=== PATIENT | male | born 1955 | race Caucasian/White ===

== ENCOUNTER 2023-05-26 22:56 | Emergency (ER) | payer MEDICARE, OTHER, SELFPAY ==
[2023-05-26 23:04] VITALS: BP 180/84
[2023-05-27 00:15] VITALS: BP 177/86; BMI 24.6
--- NOTE | 2023-05-27 00:40 | ED.GENMED ---
History of Present Illness
<ELÍAS Brown - Last Filed: 05/27/23 01:01>
General
Chief Complaint: Musculo-Skeletal Complaint
Source: patient
Exam Limitations: none
Time Seen by Provider: 05/27/23 00:14
Nursing documentation reviewed up to this point in time: agreed with
Travel History
Have you had any contact with someone who has COVID-19?: No
Do you have any symptoms of coronavirus? Fever > 100 degrees, chills, cough, shortness of breath, sore throat, loss of taste or smell, muscle aches, or headache?: No
History of Present Illness
History of Present Illness:
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 He states the pain is worse today and rated as severe. Patient reports pain is worse at night and okay during day. Patient
reports the pain starts at his hip and goes down to his knee. He reports the pain is constant but he gets occasional shooting pain from hip to knee. He took Motrin for his pain without relief of symptoms. He is able to bear weight and move his knee
and hip without limitation. Patient did see his PCP last week and was given stretching exercises to do. He denies injury/trauma, pain elsewhere, numbness, tingling, swelling or erythema. Patient finished blood exchanges for his prostate cancer and
is now currently on medications only. He follows with his oncologist.
Review of Systems
<ELÍAS Brown - Last Filed: 05/27/23 01:01>
Review of Systems
Allergies reviewed?: Yes
All Other Systems: ROS reviewed and negative except as documented in HPI and ROS
Constitutional: Reports no symptoms
EENT: Reports no symptoms
Respiratory: Reports no symptoms
Cardiac: Reports no symptoms
ABD/GI: Reports no symptoms
: Reports no symptoms
Musculoskeletal: Reports joint pain and muscle pain
Skin: Reports no symptoms
Neurological: Reports no symptoms
Endocrine: Reports no symptoms
Hematologic/Lymphatic: Reports no symptoms
Psychiatric: Reports no symptoms
Phy Exam
<ELÍAS Brown - Last Filed: 05/27/23 01:01>
General Physical Exam
General Presentation: well appearing and mild distress
General age: appears stated age
General Skin: warm and dry
General Habitus: normal
General Mental: alert
General Hydration: appears well hydrated
Cardiovascular Exam
Cardiovascular Exam: regular rate/rhythm, no edema, no gallop, no murmur and normal peripheral pulses
Pulmonary Exam
Pulmonary Exam: lungs clear, no respiratory distress, no rales, no crackles and no rhonchi
Neurological Exam
Neurological Exam: alert and oriented x3
Musculoskeletal Exam
Musculoskeletal Exam: full ROM and other (full ROM of L hip and knee, tender to palpation around medial and lateral meniscus )
Skin Exam
Skin Exam: normal color, warm/dry and no rash
Psychiatric Exam
Psychiatric Exam: normal mood/affect
Course
<ELÍAS Brown - Last Filed: 05/27/23 01:01>
Orders/Labs/Results
Orders:
Orders
05/27/23 00:54
Ketorolac [Toradol] 60 mg IM NOW STA
05/27/23 00:56
Femur, Left 2 View [CR Femur - Left Min 2 Vw] Urgent
Comment:
Reason For Exam: L thigh pain, hx prostate ca
Knee, Left 4 or More Views [CR Knee - Left 4 Or More View*] Urgent
Comment:
Reason For Exam: progressive L knee pain x 2-3 months-hx prostate c
05/27/23 02:24
Oxycodone/Acetaminophen [Percocet 5/325] 1 tablet PO NOW STA
Vital Signs
Initial and Last Documented VS:
Initial Vital Signs
Temp Pulse Resp BP Pulse Ox
97.8 F 68 22 180/84 98
05/26/23 23:04 05/26/23 23:04 05/26/23 23:04 05/26/23 23:04 05/26/23 23:04
Last Documented Vital Signs
Temp Pulse Resp BP Pulse Ox
98.4 F 72 20 177/86 95
05/27/23 00:15 05/27/23 00:15 05/27/23 00:15 05/27/23 00:15 05/27/23 00:15
<Sonam Leal DO - Last Filed: 05/27/23 02:32>
Orders/Labs/Results
Orders:
Orders
05/27/23 00:54
Ketorolac [Toradol] 60 mg IM NOW STA
05/27/23 00:56
Femur, Left 2 View [CR Femur - Left Min 2 Vw] Urgent
Comment:
Reason For Exam: L thigh pain, hx prostate ca
Knee, Left 4 or More Views [CR Knee - Left 4 Or More View*] Urgent
Comment:
Reason For Exam: progressive L knee pain x 2-3 months-hx prostate c
05/27/23 02:24
Oxycodone/Acetaminophen [Percocet 5/325] 1 tablet PO NOW STA
Vital Signs
Initial and Last Documented VS:
Initial Vital Signs
Temp Pulse Resp BP Pulse Ox
97.8 F 68 22 180/84 98
05/26/23 23:04 05/26/23 23:04 05/26/23 23:04 05/26/23 23:04 05/26/23 23:04
Last Documented Vital Signs
Temp Pulse Resp BP Pulse Ox
98.4 F 72 20 177/86 95
05/27/23 00:15 05/27/23 00:15 05/27/23 00:15 05/27/23 00:15 05/27/23 00:15
<ELÍAS Brown - Last Filed: 05/27/23 01:01>
MDM/Problems Addressed
Differential Diagnosis Includes:
Bone metastasis secondary to prostate cancer
Fracture
<Sonam Leal DO - Last Filed: 05/27/23 02:32>
*Radiology
Radiology exam reviewed: preliminary read by ED provider (Left femur, left knee x-ray showed no evidence of bony metastatic disease nor evidence of fracture.)
*Pulse Oximetry
Patient hypoxic: no
*Critical Care Note
Total Time (30-74mins, 75-104mins- exclusive of procedures): Not Applicable
ED Attending Note
<ELÍAS Brown - Last Filed: 05/27/23 01:01>
-
Portions of this chart may have been created with voice recognition software.� Occasional wrong word or��sound alike� substitutions may have occurred due to the inherent limitations of voice recognition software.
<Sonam Leal DO - Last Filed: 05/27/23 02:32>
ED Attending Note
Patient seen and examined by attending physician: Yes
I performed the substantive portion of visit, reviewed & personally made and approve the management plan that is documented in note by myself or SELAM.: Yes
ED Attending Note:
68-year-old gentleman with history of prostate cancer metastatic to bone, follows with [facility]/Dr. Roberts. Maintained on immunologic's.
He complains of left hip and left knee pain that began February 2023.
He has known bony metastatic disease to his spine, pelvis, left acetabulum.
Patient complains of progressive pain primarily to his left knee that is most noted in the evening hours, he admits to feeling well and remains active during the day. Pain is most noted at nighttime with difficulty sleeping.
He was prescribed a short course of tramadol, # 15 tablets April 16. Prescribed by Dr. Roberts's office for pain. Patient states he does not believe this was effective for his pain.
He did call oncologist office last week and was referred to his PCP.
Follow-up with PCP he was recommended to take [id number] Tylenol versus ibuprofen as well as stretching exercises.
Patient states left knee pain was much worse tonight after returning home from the hospital�visiting his . He took ibuprofen 600 mg around 6 PM without relief.
He has had no falls. No fever nor chills. He denies back pain, denies weakness nor numbness. Pain is not worsened with ambulation. Does not improve with rest. No definitive aggravating or relieving factors.
Left knee pain is described as a sharp, stabbing, intermittent pain primarily anterior proximal knee.
He has driven himself to the ED. Requesting something for pain.
GENERAL: 68-year-old gentleman appears his stated age, awake and alert, pleasant, appears in mild to moderate distress intermittently rubbing at his left knee.
EYE: anicteric
NECK: Supple, nontender, no meningismus, no significant adenopathy.
ENT: oral mucosa is moist. No rhinorrhea.
CARDIAC: Regular rate and rhythm. no murmur.
LUNGS: Clear breath sounds bilaterally, no acute respiratory distress, no wheezes/rales/rhonchi
ABDOMEN: Soft, nondistended, without focal tenderness, normoactive BS.
BACK: No midline bony tenderness. No palpable bony pelvic tenderness.
NEUROLOGICAL: Alert and oriented x3, no focal neuro deficits. Gait is steady.
SKIN: Warm and dry, normal color, skin intact. No rash.
MUSCULOSKELETAL: No C/C/E. peripheral pulses are full and equal b/l. Left knee: There is no effusion, no erythema, no ecchymosis. Minimal tenderness to palpation anterior superior knee. There is full range of motion without difficulty nor
increased pain. No crepitus. There is no tenderness about the left hip, full hip range of motion without difficulty nor pain.
PSYCH: Mildly anxious related to pain.
Concern for bony metastatic disease to left femur, left knee. As patient has been ambulatory, occult pathologic fracture is less likely.
Other consideration is referred pain from left hip, lumbar spine.
As patient has driven himself to the ED will trial an IM dose of Toradol and will check x-ray of left knee and femur.
Pain apparently has been ongoing, reportedly much worse at nighttime and not bothersome during the day. We could certainly trial a stronger opioid medication to be taken at nighttime only.
Ultimately, patient will require follow-up with his primary oncologist for further evaluation and to continue with pain management strategies.
05/27/2023 0226 AM
Patient reports no significant relief after IM Toradol but he is able to be up and about, ambulatory with steady unaided gait.
Left femur and left knee x-rays show no evidence of occult fracture nor bony metastatic disease. There is note of sclerotic lesions throughout the partially x-rayed pelvis.
We did discuss opioid medication and is administered here he will need a ride home which she declines and instead will take a dose of Percocet at home with him to take once he is home.
Recommend prompt follow-up with his oncologist for further evaluation.
Discharge Plan
Departure
Patient Disposition: Home (Routine Discharge)
Date of Disposition: 05/27/23
Time of Disposition: 02:27
Patient with high blood pressure during this ER visit?: Yes
Condition: Good
Discharge Problem:
Chronic pain of left knee, history of prostate cancer, bony mets
Instructions: Muscle and Bone Pain (DC)
Prescriptions:
New
oxycodone-acetaminophen [Percocet] 5-325 mg Tablet
1 tab PO BIDPRN PRN (Reason: pain) Qty: 10 0RF
No Action
Xgeva 120 mg/1.7 mL (70 mg/mL) Solution
120 mg SC Q6W
prednisone
10 mg PO DAILY
Referrals:
Joe Roberts, [Active] - Next open appointment
Mckay Wilhelm MD [Family Provider] - Call in 1-3 days for appt
Interventions
Interventions:
*Risk Screen - Suicide Last Done: 05/26/23 23:04
*General Assessment Last Done: 05/27/23 00:15
*Neglect/Abuse Screening Last Done: 05/26/23 23:04
ED- Fall Risk Assessment Last Done: 05/27/23 00:15
*ED COVID-19 Vaccine History Last Done: 05/27/23 00:15
ED-Musculoskeletal Assessment Last Done: 05/27/23 00:15
[2023-05-27] MEDS: TORADOL 60 MG IM (01:00)
[2023-05-27 02:24] VITALS: BP 160/70
[2023-05-27] MEDS: PERCOCET 5/325 1 TABLET PO (02:36)
[2023-05-27 02:46] VITALS: BP 160/70
== END 2023-05-27 02:47 | disposition home or self-care (01) ==
LOC: EMR 22:56
PROVIDERS: EMERGENCY PHYSICIAN Emergency Medicine; FAMILY PHYSICIAN Family Medicine
DX: G89.29 Other chronic pain (principal); M25.562 Pain in left knee; C61 Malignant neoplasm of prostate; C79.51 Secondary malignant neoplasm of bone
CPT/HCPCS: 99283; 96372; 73552; 73564

== ENCOUNTER → 2023-07-31 10:50 | Outpatient (REF) | payer MEDICARE, OTHER, SELFPAY | LOC: PET 10:50 | PROVIDERS: ATTENDING PHYSICIAN Internal Medicine Hematology & Oncology | DX: C61 Malignant neoplasm of prostate (principal) | CPT/HCPCS: 78815 ==

== ENCOUNTER → 2023-08-18 06:55 | Outpatient (REF) | payer MEDICARE, OTHER, SELFPAY ==
[2023-08-18 07:20] VITALS: BP 157/86; BP_SYST 66
[2023-08-18] MEDS: ANCEF 10 IV (07:57)
[2023-08-18 09:14] VITALS: BP 149/78
== END ==
LOC: RADI 06:55
PROVIDERS: ATTENDING PHYSICIAN Internal Medicine Hematology & Oncology
DX: C61 Malignant neoplasm of prostate (principal)
CPT/HCPCS: 36561; 76937; 77001; 99152; 99153; C1788

== ENCOUNTER 2023-09-26 10:05 | Outpatient (RCR) | payer MEDICARE, OTHER, SELFPAY ==
[2023-09-24 15:12] LABS: Hematocrit 20.8 % (39.0-52.0); Hemoglobin 6.8 g/dL (13.0-18.0); Mean Corp Hgb Conc. 32.7 g/dL (33.0-37.0); Mean Corpuscular Hgb 29.4 pg (27.0-31.0); Red Blood Cell Count 2.31 10^6/uL (4.70-6.10); Red Cell Dist. Width 16.2 % (11.5-14.5); White Blood Cell Count 8.1 10^3/uL (4.8-10.8)
[2023-09-24 15:56] LABS: ALT (SGPT) 20 U/L (0-50); AST (SGOT) 21 U/L (17-59); Albumin 3.9 g/dl (3.5-5.0); Alkaline Phosphatase 171 U/L (38-126); Blood Urea Nitrogen 13 mg/dl (9-20); Calcium 8.7 mg/dl (8.4-10.2); Carbon Dioxide 25 mmol/L (22-30); Chloride 105 mmol/L (98-107); Glucose 145 mg/dl (70-99); Potassium 4.1 mmol/L (3.5-5.1); Sodium 139 mmol/L (135-145); Total Bilirubin 0.4 mg/dl (0.2-1.3); eGFR > 60.00
[2023-09-24 16:31] LABS: Mean Platelet Volume 12.1 fL (7.4-10.4); Platelet Count 48 10^3/uL (130-400)
[2023-09-24 16:32] LABS: Absolute Neutrophils -Man Diff 5.7 10^3/uL (1.4-6.5); Band Neutrophils 0 % (0-3); Lymphocytes 6 % (20-51); Metamyelocytes 10 % (-); Monocytes 7 % (2-9); Myelocytes 6 % (-); Normal RBC Morphology No; Platelets Checked Yes; Segmented Neutrophils 71 % (42-75)
[2023-09-24 16:33] LABS: Hypochromasia Slight; Microcytosis Slight; Nucleated Red Blood Cells 1 (-); Tear Drop Red Blood Cells Slight
[2023-09-24 16:34] LABS: Total Cells Counted 100
[2023-09-26] VITALS (7 sets, daily range): BP systolic 111–137; BP diastolic 54–65
== END 2023-10-12 23:59 | disposition home or self-care (01) ==
LOC: OID 10:05
PROVIDERS: ATTENDING PHYSICIAN Internal Medicine Hematology & Oncology; FAMILY PHYSICIAN Family Medicine
DX: C61 Malignant neoplasm of prostate (principal)
CPT/HCPCS: 36415; 36430; 80053; 85025; 86850; 86900; 86901; 86920; P9016

== ENCOUNTER → 2023-10-03 15:39 | Outpatient (REF) | payer MEDICARE, OTHER, SELFPAY ==
[2023-10-03 16:58] LABS: Blood Urea Nitrogen 9 mg/dl (9-20); Calcium 7.2 mg/dl (8.4-10.2); Carbon Dioxide 24 mmol/L (22-30); Chloride 106 mmol/L (98-107); Glucose 97 mg/dl (70-99); Sodium 138 mmol/L (135-145); eGFR > 60.00
[2023-10-03 17:00] LABS: % Basophils 0.2 % (0-2); % Immature Granulocytes 11.9 % (0-0.5); % Lymphocytes 9.7 % (20.5-51.1); % Monocytes 8.1 % (1.7-9.3); % Neutrophils 70.1 % (42.2-75.2); Absolute Immature Granulocytes 0.5 10^3/uL (0-0.05); Absolute Lymphocytes 0.4 10^3/uL (1.2-3.4); Absolute Monocytes 0.3 10^3/uL (0.1-0.6); Hematocrit 17.7 % (39.0-52.0); Mean Corp Hgb Conc. 33.9 g/dL (33.0-37.0); Mean Corpuscular Hgb 29.3 pg (27.0-31.0); Mean Corpuscular Volume 86.3 fL (80.0-94.0); Mean Platelet Volume 11.8 fL (7.4-10.4); Nucleated Red Blood Cells % 0 % (-); Platelet Count 41 10^3/uL (130-400); Red Blood Cell Count 2.05 10^6/uL (4.70-6.10); Red Cell Dist. Width 15.9 % (11.5-14.5); White Blood Cell Count 4.2 10^3/uL (4.8-10.8)
== END ==
LOC: REG 15:39
PROVIDERS: ATTENDING PHYSICIAN Internal Medicine Hematology & Oncology; FAMILY PHYSICIAN Family Medicine
DX: C61 Malignant neoplasm of prostate (principal)
CPT/HCPCS: 36415; 80048; 84153; 85025

== ENCOUNTER 2023-10-04 12:51 | Inpatient (IN) | payer MEDICARE, OTHER, SELFPAY ==
[2023-10-04] VITALS (22 sets, daily range): BP systolic 99–118; BP diastolic 51–64; BMI 24.7
--- NOTE | 2023-10-04 07:57 | ED.GENMED ---
History of Present Illness
General
Chief Complaint: Abnormal Lab Value
Source: patient
Exam Limitations: none
Time Seen by Provider: 10/04/23 07:41
Nursing documentation reviewed up to this point in time: agreed with
History of Present Illness
History of Present Illness:
Patient with history of metastatic prostate cancer and ongoing anemia, requiring blood transfusion 8 days ago, presents to ED secondary to worsening dizziness when standing up along with shortness of breath with exertion over the past 1 week. An
outpatient blood work this week revealed worsening anemia. 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 Denies chest pain. Denies fever or chills. Denies coughing. Denies
nausea, vomiting, or diarrhea. Denies headache. Denies seeing blood with urination or with bowel movements. Patient reports minimal symptoms at rest.
Review of Systems
Review of Systems
Allergies reviewed?: Yes
All Other Systems: ROS reviewed and negative except as documented in HPI and ROS
Constitutional: Reports no symptoms; Denies fever
EENT: Reports no symptoms
Respiratory: Reports trouble breathing; Denies cough
Cardiac: Reports no symptoms
ABD/GI: Reports no symptoms; Denies abdominal pain, nausea or vomiting
Musculoskeletal: Reports no symptoms
Skin: Reports no symptoms
Neurological: Reports dizzy and weakness
Phy Exam
Physical Exam
Physical Exam:
Physical Exam
General: no apparent distress, not acutely ill. afebrile. weak appearing
Head: nc/at. eomi
Neck: supple. normal range of motion.
Heart: s1/s2 regular rate and rhythm, no murmur. equal radial pulses.
Lungs: no acute respiratory distress. clear bilaterally
Abdomen: normal bowel sounds. not tender.
Neuro: alert and oriented. no focal neurological deficits
Skin: no rash
Psychiatric: well kept. interactive and cooperative
Extremities: no edema. no calf tenderness.
Course
Orders/Labs/Results
Orders:
Orders
10/04/23 07:58
Type+Screen Urgent
Complete Blood Count/With Diff Urgent
Comprehensive Metabolic Panel Urgent
Comment: ADD ON
Direct Bilirubin Urgent
Comment: ADD ON
Ferritin Stat
Comment: ADD ON
Iron Urgent
Comment: ADD ON
Magnesium Urgent
Manual Differential Urgent
Reticulocyte Count Urgent
Comment: ADD ON
Total Iron Binding Urgent
Comment: ADD ON
10/04/23 08:33
* Blood Bank Products Urgent
Blood Bank Products: *Packed RBC Leuko(PRBC's)
Quantity: 2
Transfuse Today: Yes
Reason: Anemia
IV Insert/Care/Rem.- Treatment PRN
10/04/23 Lunch
Regular
At Your Request: Full Participation
Does patient need a safe tray?: No
10/04/23 11:52
Admit/Transfer Patient As Directed
Co-Sign Provider:
Level of Care: Inpatient admission
Assign to:: Medical/Surgical
Physician / Group: hospitalists
Diagnosis: Symptomatic anemia
Reason for Hospitalization: symptomatic anemia, need for blood transfusion, therapy
Expected length of stay greater than two midnights?: No
ELOS- Estimated Length of Stay in days: 1
I certify the patient meets the requirements for IP care: Yes
10/04/23 11:56
Code Status As Directed
Resuscitation Status: Do not resuscitate
Reached after discussion with pt or family/Healthcare POA: Yes
10/04/23 11:57
DNR Bracelet Application ONCE
10/04/23 13:23
Bisacodyl [Dulcolax] 10 mg RECTAL [id number] PRN
Docusate W/Senna [Senokot-S] 1 tablet PO BIDPRN PRN
Polyethylene Glycol Powder [Miralax] 17 grams PO DAILYPRN PRN
10/04/23 13:23
Add On- LAB Routine
Tests Added?: TIBC,serum iron, ferritin, % saturation, retic count, lft
HEMATOLOGY CONSULT Routine
Consulting Provider: Jean Fritz
Was physician already notified: Yes
Activity As Directed
Activity Level: As Tolerated
Pneumatic Compression Sleeves As Directed
Type: Knee high
Vital Signs As Directed
Frequency: Per unit guidelines
CR Chest - 2 Views Routine
Comment:
Reason For Exam: cough
DX Deep Vein Thrombosis Video Routine
10/04/23 15:00
H&H Routine
10/04/23 20:00
Prednisone [Deltasone] 5 mg PO BID
10/05/23 06:00
Complete Blood Count/With Diff IN AM
Comprehensive Metabolic Panel IN AM
Abnormal Lab Results
10/04/23
07:58
WBC 3.9 L 10^3/uL
(4.8-10.8)
RBC 1.97 L 10^6/uL
(4.70-6.10)
Hgb 5.7 L* g/dL
(13.0-18.0)
Hct 17.5 L* %
(39.0-52.0)
MCHC 32.6 L g/dL
(33.0-37.0)
RDW 15.6 H %
(11.5-14.5)
Plt Count 39 L 10^3/uL
(130-400)
MPV 11.8 H fL
(7.4-10.4)
Segmented Neutrophils 78 H %
(42-75)
Lymphocytes (Manual) 10 L %
(20-51)
Chloride 110 H mmol/L
(98-107)
Creatinine 0.5 L mg/dL
(0.7-1.3)
Glucose 106 H mg/dl
(70-99)
Calcium 6.9 L* mg/dl
(8.4-10.2)
Magnesium 2.7 H mg/dl
(1.6-2.3)
TIBC 149 L ug/dl
(261-462)
ALT 77 H U/L
(0-50)
Alkaline Phosphatase 148 H U/L
(38-126)
Total Protein 5.1 L g/dl
(6.3-8.2)
Albumin 3.0 L g/dl
(3.5-5.0)
Crossmatch IS Only See Detail
10/04/23 07:58
10/04/23 07:58
Vital Signs
Initial and Last Documented VS:
Initial Vital Signs
Temp Pulse Resp BP Pulse Ox
97.5 F 68 16 102/54 97
10/04/23 07:36 10/04/23 07:36 10/04/23 07:36 10/04/23 07:36 10/04/23 07:36
Last Documented Vital Signs
Temp Pulse Resp BP Pulse Ox
100.2 F 65 18 104/51 95
10/04/23 14:20 10/04/23 14:20 10/04/23 14:20 10/04/23 14:20 10/04/23 14:20
MDM/Problems Addressed
MDM/Problems Addressed:
H/H noted. Will transfuse.
Transfusion consent on the chart. Pt will be admitted for further evaluation and treatment.
*Critical Care Note
Total Time (30-74mins, 75-104mins- exclusive of procedures): Not Applicable
ED Attending Note
-
Portions of this chart may have been created with voice recognition software.� Occasional wrong word or��sound alike� substitutions may have occurred due to the inherent limitations of voice recognition software.
Discharge Plan
Departure
Patient Disposition: Admit
Date of Disposition: 10/04/23
Time of Disposition: 08:35
Admit to: Telemetry
Presentation/result/management discussed w/ accepting MD/DO: Hospitalist
Discharge Problem:
Symptomatic anemia, Pancytopenia
Interventions
Interventions:
*Risk Screen - Suicide Last Done: 10/04/23 13:25
*General Assessment Last Done: 10/04/23 07:36
*Neglect/Abuse Screening Last Done: 10/04/23 13:25
ED- Fall Risk Assessment Last Done: 10/04/23 14:22
*ED COVID-19 Vaccine History Last Done: 10/04/23 07:36
*Nursing Disposition Last Done: 10/04/23 14:22
Discharge Date and Time
Discharge Date/Time: 10/04/23 14:23
[2023-10-04 08:12] LABS: Mean Corp Hgb Conc. 32.6 g/dL (33.0-37.0); Mean Corpuscular Hgb 28.9 pg (27.0-31.0); Mean Corpuscular Volume 88.8 fL (80.0-94.0); Mean Platelet Volume 11.8 fL (7.4-10.4); Platelet Count 39 10^3/uL (130-400); Red Blood Cell Count 1.97 10^6/uL (4.70-6.10); Red Cell Dist. Width 15.6 % (11.5-14.5); White Blood Cell Count 3.9 10^3/uL (4.8-10.8)
[2023-10-04 08:16] LABS: Hematocrit 17.5 % (39.0-52.0); Hemoglobin 5.7 g/dL (13.0-18.0)
[2023-10-04 08:44] LABS: Absolute Neutrophils -Man Diff 3.1 10^3/uL (1.4-6.5); Band Neutrophils 3 % (0-3); Lymphocytes 10 % (20-51); Segmented Neutrophils 78 % (42-75)
[2023-10-04 08:45] LABS: Metamyelocytes 6 % (-); Monocytes 3 % (2-9); Normal RBC Morphology Yes; Platelets Checked Yes; Total Cells Counted 100
[2023-10-04 09:09] LABS: Blood Urea Nitrogen 10 mg/dl (9-20); Calcium 6.9 mg/dl (8.4-10.2); Carbon Dioxide 22 mmol/L (22-30); Chloride 110 mmol/L (98-107); Estimated Creatinine Clearance 109 ml/min; Glucose 106 mg/dl (70-99); Magnesium 2.7 mg/dl (1.6-2.3); Potassium 3.7 mmol/L (3.5-5.1); Sodium 137 mmol/L (135-145); eGFR > 60.00
[2023-10-04] MEDS: TYLENOL 650 MG PO (13:31)
[2023-10-04 13:42] LABS: Nucleated Red Blood Cells % 0 % (-); Reticulocyte Count 0.5 % (0.4-2.8)
--- NOTE | 2023-10-04 13:42 | PTCARENOTE ---
2 units of PRBC's ordered.
Upon completion of 1st ordered unit, oral temp 99.7F. Oral temp 100.4F at beginning of 2nd ordered unit of PRBC's. Dr. Jones and Dr. Fuentes notified. New order for PRN Tylenol and instructed to give now and continue blood administration. 2nd
ordered unit infusing.
[2023-10-04 14:05] LABS: ALT (SGPT) 77 U/L (0-50); AST (SGOT) 57 U/L (17-59); Alkaline Phosphatase 148 U/L (38-126); Direct Bilirubin 0.2 mg/dl (0.0-0.4); Iron 64 ug/dl (49-181); Total Bilirubin 0.4 mg/dl (0.2-1.3); Total Protein 5.1 g/dl (6.3-8.2)
[2023-10-04 14:17] LABS: Percent Saturation 42 % (20-50); Total Iron Binding Capacity 149 ug/dl (261-462)
--- NOTE | 2023-10-04 15:04 | HPS.HSE ---
Addendum entered and electronically signed by Scarlet Jones MD 10/04/23 17:14:
Patient seen and examined independently--agree with plan as set forth by Dr. Fuentes
GENERAL: well developed, well nourished, male in no apparent distress
HEENT: NC/AT pale appearing
HEART: regular rate and rhythm, +S1, +S2
LUNGS : clear to auscultation bilaterally
ABDOM: soft, nontender, nondistended, + bowel sounds
EXT: no cyanosis, clubbing, or edema
NEUROLOGIC: grossly intact
Symptomatic anemia with Pancytopenia--Workup in the ER�WBC 3.9, hemoglobin 5.7, platelets 39--Likely due to bony metastatic disease from prostate cancer and chemotherapy--ADMIT--agree with transfusion of pRBC--Check H&H post transfusion--Iron
studies not c/w iron deficiency--LFT's OK--Reticulocyte count, PBS
Stage IV prostate cancer--Metastatic hormone refractory prostate cancer--S/p radiation, completed 2 out of 6 chemotherapy treatments--Prior hormonal therapy�Lupron every 6 months, abiraterone, Dasatinib--History of denosumab use, h/o Neulasta
(filgrastim)--apprec Oncology
SOB/Patient reports having dry cough--Chest x-ray without significant findings as cause for cough
DVT prophylaxis--SCDs
CODE status -- DNR
Original Note:
Family Physician
-
Family Physician: Mckay Wilhelm
Chief Complaint
-
Dizziness, lightheadedness
History of Present Illness
68-year-old male with past medical history of stage IV prostate adenocarcinoma s/p radiotherapy ( Joey 9) with ongoing chemotherapy/immunotherapy�follow[facility], had outpatient blood work which showed pancytopenia with
hemoglobin of 6.0. Patient reports having dizziness, lightheadedness and mild shortness of breath since 1 week along with some dry cough. Patient was advised by his oncologist for further evaluation and blood transfusion. His last chemotherapy
session was on 09/16/2023. This is the second chemotherapy of his total 6 treatments. Patient denies chest pain, fever, chills, nausea, vomiting, diarrhea, hematemesis, hematuria, blood in stools, bone pains, loss of appetite, unintentional weight
loss.
Medical History
Past Medical History
Past Medical History: Reports None
Additional Past Medical History:
Prostate cancer stage IV
Past Surgical History: Reports Other (Umbilical hernia repair)
Additional Past Surgical History:
Umbilical hernia repair
Social History
Tobacco: Former Smoker
Alcohol: Occasional
Drug: None
Personal:
Living: With Family
Employment: Retired
Family History
Family History: Not pertinent
Allergies / Home Medications
Allergies reflects when Allergies were last updated in [employer]
Home Medications with original date entered in [employer]
Allergy/Medication List:
Patient Allergies
Allergy/AdvReac Type Severity Reaction Status Date / Time
NKA - No Known Allergies Allergy NKA Uncoded 10/04/23 07:38
Home Medications Table - record
�Medication �Instructions �Recorded �Confirmed
prednisone 5 mg tablet 5 mg PO BID 05/27/23 10/04/23
calcium carbonate (Calcium 600) 1,500 mg PO DAILY 08/15/23 10/04/23
cholecalciferol (vitamin D3) 25 25 mcg PO DAILY 08/15/23 10/04/23
mcg (1,000 unit) capsule (Vitamin
D3)
ibuprofen 200 mg tablet (Advil) 400 mg PO DAILYPRN PRN headaches 10/04/23 10/04/23
Review of Systems
-
A 12 point ROS was completed and negative except as noted: Yes
Physical Exam
Vital Signs
Vital Signs
Temp Pulse Resp BP Pulse Ox
100.2 F 65 18 104/51 95
10/04/23 14:20 10/04/23 14:20 10/04/23 14:20 10/04/23 14:20 10/04/23 14:20
Physical Exam
General: No Apparent Distress and Other (Appears 3)
HEENT: Other (Conjunctival pallor)
Respiratory: Clear
Cardiac: S1/S2
GI: Soft, Non Tender, Non Distended and Normal Bowel Sounds
Musculoskeletal: Other (No bone tenderness)
Skin: Warm and Dry
Neuro: Awake, Alert, Oriented and AO x 3
Hematologic/Lymphatic: No Lymphadenopathy
Psych: Calm
Laboratory Results
-
10/04/23 07:58
Laboratory Results
Total Bilirubin 0.4 mg/dl (0.2-1.3) 10/04/23 07:58
AST 57 U/L (17-59) 10/04/23 07:58
ALT 77 U/L (0-50) H 10/04/23 07:58
Alkaline Phosphatase 148 U/L (38-126) H 10/04/23 07:58
Impression/Plan
-
Assessment
68-year-old, male with past medical history significant for stage IV metastatic hormone refractory prostate cancer, presented to the ER for evaluation of pancytopenia. He also reports having shortness of breath, dry cough, lightheadedness since 1
week.
Impression
Pancytopenia
Stage IV prostate cancer
SOB
Plan
#Pancytopenia
Workup in the ER�WBC 3.9, hemoglobin 5.7, platelets 39
Likely due to bony metastatic disease from prostate cancer versus chemotherapy
2 pRBC transfusion
Check H&H post transfusion
Iron studies
LFTs
Reticulocyte count, PBS
Trend CBC
#Stage IV prostate cancer
Metastatic hormone refractory prostate cancer
S/p radiation, completed 2 out of 6 chemotherapy treatments.
Prior hormonal therapy�Lupron every 6 months, abiraterone, Dasatinib
History of denosumab use, h/o Neulasta (filgrastim)
Oncology consulted
#SOB
Patient reports having dry cough
Chest x-ray
#DVT prophylaxis
SCDs
--- NOTE | 2023-10-04 15:42 | PTCARENOTE ---
1420 Pt received to unit with 2nd unit of PRBC infusing. Spouse at bedside. Pt oriented to staff and call light system. Personal items and call light within reach.
[2023-10-04 17:57] LABS: Hemoglobin 7.3 g/dL (13.0-18.0)
[2023-10-04 17:58] LABS: Hematocrit 20.8 % (39.0-52.0)
--- NOTE | 2023-10-04 20:17 | CON.ONC ---
Impression
Impression
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
Plan
Plan
complete transfusions and recheck increment in the morning along with PT/PTT/FIBRINOGEN-- would expect 2 -3 gram increment-- will followup
Patient History
History of Present Illness
68yo WM with current HRPC with extensive bone disease since completing cycle #2 taxotere 09/16/2023 requiring transfusions for symptomatic anemia wiht hGB <7 on 09/23 (6.8) and 10/02 (6.0) having first in [facility] then second requiring hospital admission
when values were available friday He noted orthostatic dizziness and MELENDREZ most recently w/o chest pain. He denies overt blood loss. Of note, his HGB value prior to first therapy was 10.3gm/dl with normal platelet count w/ PSA 278 then 8 days
following 2nd infusion HGB measured 6.8 and plts 48 and 17 days post therapy HGB 6.0 and plts 41 w/ PSA 336
Past-Medical/Surgical History
Hernia repair; CLBP
Patient Medication
�Medication �Instructions �Recorded �Confirmed �Last Taken �Type
prednisone 5 mg tablet 5 mg PO BID 05/27/23 10/04/23 09/26/23 History
calcium carbonate (Calcium 600) 1,500 mg PO DAILY 08/15/23 10/04/23 09/26/23 History
cholecalciferol (vitamin D3) 25 25 mcg PO DAILY 08/15/23 10/04/23 09/26/23 History
mcg (1,000 unit) capsule (Vitamin
D3)
ibuprofen 200 mg tablet (Advil) 400 mg PO DAILYPRN PRN headaches 10/04/23 10/04/23 10/04/23 History
Active Medications
Generic Name Dose Route Start Last Admin
Trade Name Freq PRN Reason Stop Dose Admin
Acetaminophen 650 mg 10/04/23 13:26 10/04/23 13:31
Acetaminophen 325 Mg Tablet PO 11/01/23 13:25 650 mg
Q6HPRN PRN Administration
mild pain/ fever>100.5F
Bisacodyl 10 mg 10/04/23 13:23
Bisacodyl 10 Mg Rectal Suppository RECTAL 11/01/23 13:22
[id number] PRN
constipation
Polyethylene Glycol 17 grams 10/04/23 13:23
Polyethylene Glycol Powder 17 Grams Packet PO 11/01/23 13:22
DAILYPRN PRN
constipation
Prednisone 5 mg 10/04/23 20:00
Prednisone 5 Mg Tablet PO 11/01/23 19:59
BID DINORA
Senna/Docusate Sodium 1 tablet 10/04/23 13:23
Docusate W/Senna (Jennifer-Colace) Tablet PO 11/01/23 13:22
BIDPRN PRN
constipation
Sodium Chloride 0 flush 10/04/23 14:00
Sodium Chloride 0.9% (Flush) Syringe IV 11/01/23 13:59
PER PROTOCOL DINORA
Review of Systems
-
History Source: Patient and Family
All Other Systems: Reviewed and Negative
Physical Exam
-
General: Well Nourished and Comfortable
HEENT: Moist Mucous Membranes
Cardiology: Normal Sinus Rhythm
Pulmonary: Clear
Musculoskeletal: No Clubbing, No Cyanosis and No Edema
Neurology: Non Focal
Labs
Lab Results
WBC 3.9 10^3/uL (4.8-10.8) L 10/04/23 07:58
RBC 1.97 10^6/uL (4.70-6.10) L 10/04/23 07:58
Hgb 7.3 g/dL (13.0-18.0) L D 10/04/23 17:32
Hct 20.8 % (39.0-52.0) L* 10/04/23 17:32
MCV 88.8 fL (80.0-94.0) 10/04/23 07:58
MCH 28.9 pg (27.0-31.0) 10/04/23 07:58
MCHC 32.6 g/dL (33.0-37.0) L 10/04/23 07:58
RDW 15.6 % (11.5-14.5) H 10/04/23 07:58
Plt Count 39 10^3/uL (130-400) L 10/04/23 07:58
MPV 11.8 fL (7.4-10.4) H 10/04/23 07:58
Creatinine 0.5 mg/dL (0.7-1.3) L 10/04/23 07:58
Vital Signs
Vital Signs
Temp Pulse Resp BP Pulse Ox
98.6 F 62 16 113/55 95
10/04/23 19:37 10/04/23 19:37 10/04/23 19:37 10/04/23 19:37 10/04/23 19:37
[2023-10-04] MEDS: NORCO 5/325 1 TABLET PO (20:51)
[2023-10-04] MEDS: DELTASONE 5 MG PO (20:52)
[2023-10-05] VITALS (7 sets, daily range): BP systolic 109–138; BP diastolic 54–63
[2023-10-05] MEDS: TYLENOL 650 MG PO ×2 (04:41→15:27)
[2023-10-05 05:38] LABS: % Basophils 0.4 % (0-2); % Immature Granulocytes 9.5 % (0-0.5); % Lymphocytes 6.4 % (20.5-51.1); % Neutrophils 79.7 % (42.2-75.2); Absolute Immature Granulocytes 0.5 10^3/uL (0-0.05); Absolute Lymphocytes 0.4 10^3/uL (1.2-3.4); Absolute Monocytes 0.2 10^3/uL (0.1-0.6); Absolute Neutrophils 4.3 10^3/uL (1.4-6.5); Hematocrit 22.8 % (39.0-52.0); Hemoglobin 7.9 g/dL (13.0-18.0); Mean Corp Hgb Conc. 34.6 g/dL (33.0-37.0); Mean Corpuscular Hgb 29.3 pg (27.0-31.0); Mean Corpuscular Volume 84.4 fL (80.0-94.0); Mean Platelet Volume 10.6 fL (7.4-10.4); Nucleated Red Blood Cells % 0 % (-); Platelet Count 41 10^3/uL (130-400); White Blood Cell Count 5.5 10^3/uL (4.8-10.8)
[2023-10-05 05:39] LABS: INR 1.22; PT 15.2 Sec (11.4-14.6)
[2023-10-05 05:40] LABS: APTT 41.5 Sec (23.4-35.0)
[2023-10-05 05:43] LABS: Fibrinogen 784 MG/DL (199-459)
[2023-10-05 06:11] LABS: ALT (SGPT) 54 U/L (0-50); AST (SGOT) 29 U/L (17-59); Albumin 2.8 g/dl (3.5-5.0); Alkaline Phosphatase 139 U/L (38-126); Blood Urea Nitrogen 10 mg/dl (9-20); Calcium 6.2 mg/dl (8.4-10.2); Carbon Dioxide 22 mmol/L (22-30); Chloride 107 mmol/L (98-107); Estimated Creatinine Clearance 109 ml/min; Glucose 104 mg/dl (70-99); Potassium 4.1 mmol/L (3.5-5.1); Sodium 136 mmol/L (135-145); Total Bilirubin 0.8 mg/dl (0.2-1.3); Total Protein 4.9 g/dl (6.3-8.2); eGFR > 60.00
--- NOTE | 2023-10-05 06:19 | W.PN.UPDATE ---
Update Note
Progress Note Update
hypocalcemic on am labs this morning (6.9)
Correct fo hypoalbumin (2.8) is 7.9 alcides give 2 g calcium rider
[2023-10-05] MEDS: CALCIUM GLUCONATE 100 IV (06:44)
--- NOTE | 2023-10-05 06:55 | W.PN.HOSP.TC ---
Addendum entered and electronically signed by Scarlet Jones MD 10/05/23 18:15:
Patient seen and examined independently--agree with plan as set forth by Dr. Fuentes
GENERAL: well developed, well nourished, male in no apparent distress
HEENT: NC/AT pale appearing
HEART: regular rate and rhythm, +S1, +S2
LUNGS : clear to auscultation bilaterally
ABDOM: soft, nontender, nondistended, + bowel sounds
EXT: no cyanosis, clubbing, or edema
NEUROLOGIC: grossly intact
Symptomatic anemia with Pancytopenia--Workup in the ER�WBC 3.9, hemoglobin 5.7, platelets 39--Likely due to bony metastatic disease from prostate cancer and chemotherapy---s/p 3 units pRBC total--Iron studies not c/w iron deficiency--LFT's OK
Stage IV prostate cancer--Metastatic hormone refractory prostate cancer--S/p radiation, completed 2 out of 6 chemotherapy treatments--Prior hormonal therapy�Lupron every 6 months, abiraterone, Dasatinib--History of denosumab use, h/o Neulasta
(filgrastim)--apprec Oncology--appointment with onc in AM
SOB/Patient reports having dry cough--Chest x-ray without significant findings as cause for cough
DVT prophylaxis--SCDs
CODE status -- DNR
ok for d/c
Original Note:
Today's Communication/Plan
-
Discharge today
Assessment / Plan
Assessment / Plan
Assessment
68-year-old male with past medical history of stage IV prostate adenocarcinoma s/p radiotherapy ( [place] 9) with ongoing chemotherapy/immunotherapy�followed by [facility], had outpatient blood work which showed pancytopenia with
hemoglobin of 6.0. Patient reports having dizziness, lightheadedness and mild shortness of breath since 1 week along with some dry cough. Patient was advised by his oncologist for further evaluation and blood transfusion. His last chemotherapy
session was on 09/16/2023. This is the second chemotherapy of his total 6 treatments. Patient denies chest pain, fever, chills, nausea, vomiting, diarrhea, hematemesis, hematuria, blood in stools, bone pains, loss of appetite, unintentional weight
loss.
On admission, patient hemoglobin was at 5.7, hematocrit 17.5, WBC 3.9 platelets 39., AST 57 ALT 77, ALP 148, PSA�336. He was transfused with 3 PRBC. H&H monitored. Hemoglobin trended up to 7.9, hematocrit 22.8. Oncology was consulted,
recommended to check coagulation profile to exclude DIC. PT�15.2, APTT�41.5, fibrinogen�784. Patient was hypocalcemic at 6.9- 6.9, repleted with 2 g calcium rider.
Patient reports having dry cough, ordered chest x-ray- Probable crowding of the central vasculature due to limited inspiration. Mild CHF cannot be excluded.
Findings consistent with severe known blastic osseous metastatic disease
Impression
Pancytopenia/symptomatic anemia
Stage IV prostate cancer
SOB
Hypocalcemia
Plan
#Pancytopenia/symptomatic anemia
Workup in the ER�WBC 3.9, hemoglobin 5.7, platelets 39
Likely due to bony metastatic disease from prostate cancer versus chemotherapy
2 pRBC transfusion
Check H&H post transfusion
Iron studies-TIBC 149, transferrin saturation 42, ferritin 64
LFTs, mild increase in ALT�54, alkaline phosphatase 139, bilirubin within normal range
Reticulocyte count 0.5
Trend CBC
H&H a.m.�7.9/.8
Ordered 1 PRBC transfusion today before discharge.
#Stage IV prostate cancer
Metastatic hormone refractory prostate cancer
S/p radiation, completed 2 out of 6 chemotherapy treatments.
Prior hormonal therapy�Lupron every 6 months, abiraterone, Dasatinib
History of denosumab use, h/o Neulasta (filgrastim)
Oncology consulted
Recommended coagulation profile
PT�15.2, APTT�41.5, fibrinogen 784
Oncology okay to discharge.
#SOB
Patient reports having dry cough
Chest x-ray- Probable crowding of the central vasculature due to limited inspiration. Mild CHF cannot be excluded.
Findings consistent with severe known blastic osseous metastatic disease
# Hypocalcemia
Calcium 6.2 in AM
Repleted.
#DVT prophylaxis
SCDs
#Code-DNR
Anticipated Discharge: Today
Subjective/Interval History
-
Date of Service: October 05, 2023
Patient received 2 PRBC, yesterday and ordered 1 PRBC today before discharge. Patient is asymptomatic, appears comfortable. No acute overnight events.
Objective Data
-
Labs:
Laboratory Results
10/05/23
05:10
WBC 5.5
Hgb 7.9 L
Hct 22.8 L
Plt Count 41 L
PT 15.2 H
INR 1.22
APTT 41.5 H
Sodium 136
Potassium 4.1
Chloride 107
Carbon Dioxide 22
BUN 10
Creatinine 0.5 L
Glucose 104 H
Calcium 6.2 L*
Total Bilirubin 0.8
AST 29
ALT 54 H
Alkaline Phosphatase 139 H
Vital Signs:
Vital Signs
Temp Pulse Resp BP Pulse Ox
100.0 F 61 20 115/61 93
10/05/23 03:00 10/04/23 23:00 10/04/23 23:00 10/04/23 23:00 10/04/23 23:00
I&O
10/03/23 10/04/23 10/05/23
06:59 06:59 06:59
Intake Total 1829
Balance 1829
Review of Systems
-
All other systems: Reviewed and negative (As per HPI)
Physical Exam
-
General: Well Developed, Well Nourished and No Apparent Distress
HEENT: Normocephalic and Atraumatic
Respiratory: Clear to Auscultation
Cardiac: S1/S2
GI: Soft, Nontender, Nondistended and Normal Bowel Sounds
Neuro: Awake, Alert, Oriented, AO x 3 and Nonfocal/Grossly Intact
Hematologic / Lymphatic: No Lymphadenopathy
Psych: Calm
--- NOTE | 2023-10-05 06:55 | W.DCSUMMARY ---
Addendum entered and electronically signed by Scarlet Jones MD 10/05/23 18:34:
Fully read and agree with summary as outlined by Dr. Fuentes. Salient features include total of 3 packed red blood cell transfusions (initially had 2 with rise in HGB to 7.9, third given prior to d/c) along with calcium infusion for hypocalcemia.
Original Note:
Discharge Summary
Discharge Data
Date of Admission: 10/04/23
Date of Discharge: 10/05/23
-
Pending Results: No
Hospital Course
Discharging Physician : Dr. Scarlet Jones, Dr. Delta Fuentes
Disposition : Home
Primary care physician : Dr. Mckay Wilhelm
Principal Discharge diagnosis : Symptomatic anemia/pancytopenia
Chronic Discharge diagnosis : Stage IV prostate cancer, SOB, hypocalcemia.
Hospital Course : 68-year-old male with past medical history of stage IV prostate adenocarcinoma s/p radiotherapy ( [place] 9) with ongoing chemotherapy/immunotherapy�followed by [facility], had outpatient blood work which showed
pancytopenia with hemoglobin of 6.0. Patient reports having dizziness, lightheadedness and mild shortness of breath since 1 week along with some dry cough. Patient was advised by his oncologist for further evaluation and blood transfusion. His
last chemotherapy session was on 09/16/2023. This is the second chemotherapy of his total 6 treatments. Patient denies chest pain, fever, chills, nausea, vomiting, diarrhea, hematemesis, hematuria, blood in stools, bone pains, loss of appetite,
unintentional weight loss.
On admission, patient hemoglobin was at 5.7, hematocrit 17.5, WBC 3.9 platelets 39., AST 57 ALT 77, ALP 148, PSA�336. He was transfused with 3 PRBC. H&H monitored. Hemoglobin trended up to 7.9, hematocrit 22.8. Oncology was consulted,
recommended to check coagulation profile to exclude DIC. PT�15.2, APTT�41.5, fibrinogen�784. Patient was hypocalcemic at 6.9, repleted with 2 g calcium rider.
Patient reports having dry cough, ordered chest x-ray- Probable crowding of the central vasculature due to limited inspiration. Mild CHF cannot be excluded.
Findings consistent with severe known blastic osseous metastatic disease.
Patient has clinically improved and is stable to be discharged today. His coagulation profile results discussed with the oncologist who is okay with the discharge. His calcium repleted again with 4 g calcium rider. Patient was advised to
follow-up with his oncologist and primary care within 1 week (patient scheduled follow-up with Dr. Roberts on 10/06/2023.)
Discharge Plan
-
Patient Disposition: Home (Routine Discharge)
Discharge Diagnosis/Procedures: Symptomatic anemia/pancytopenia
Condition: Good
Diet: As tolerated
Activity: As tolerated
Driving Restrictions: As prior to admission
Bathing Restrictions: None
Referrals:
Mckay Wilhelm MD [Family Provider] - in less than 1 week
Jean Fritz DO [Active] - in less than 1 week
Prescriptions:
New
sennosides-docusate sodium [Stool Softener-Laxative] 8.6-50 mg Tablet
1 tab PO BIDPRN PRN (Reason: constipation) Qty: 10 0RF
Continued
prednisone 5 mg Tablet
5 mg PO BID
calcium carbonate [Calcium 600] 600 mg calcium (1,500 mg) Tablet
1,500 mg PO DAILY
cholecalciferol (vitamin D3) [Vitamin D3] 25 mcg (1,000 unit) Capsule
25 mcg PO DAILY
ibuprofen [Advil] 200 mg Tablet
400 mg PO DAILYPRN PRN (Reason: headaches)
Discharge Orders:
Discharge Patient (As Directed); Ordered 10/05/23
Ordered By: Delta Fuentes
Discharge Date and Time
Print Language: LAO
[2023-10-05] MEDS: DELTASONE 5 MG PO (08:37)
[2023-10-05] MEDS: CALCIUM GLUCONATE 290 MG IV (10:29)
[2023-10-05 13:16] LABS: Imm Run PTT 1:10 Mix 37.6 SEC
[2023-10-05 13:17] LABS: Control Immediate PTT 38.6 SEC
[2023-10-05 13:23] LABS: 60 Minute PTT Control 41.9 SEC
[2023-10-05 13:24] LABS: 60 Min PTT 1:10 Mix 49.6 SEC; 60 Min PTT 1:2 Mix 47.2
[2023-10-05 13:31] LABS: Imm Run PTT 1:2 Mix 35.6
--- NOTE | 2023-10-05 13:57 | CM ---
Patient with Hx metastatic prostate CA on chemo with Dx symptomatic anemia with pancytopenia. Receiving PRBCs.
Met with patient who resides with his in a 1 story house.
The patient has been independent in ADLs and ambulation.
He is retired, still goes out and drives.
The patient has no DME, prior VN.
PCP - Mckay Wilhelm
Pharmacy - [facility]
Offered VN and patient declined.
The patient says he feels ready for d/c home today. IMM completed. His will provide transport home.
No CM d/c needs identified.
Plan home today.
== END 2023-10-05 16:55 | disposition home or self-care (01) | DRG 809 ==
LOC: 3 WEST ACU 12:51
PROVIDERS: Student in an Organized Health Care Education/Training Program; ADMITTING PHYSICIAN Internal Medicine; CONSULT PHYSICIAN Internal Medicine Hematology & Oncology; EMERGENCY PHYSICIAN Emergency Medicine; FAMILY PHYSICIAN Family Medicine
PROC: 30233N1 Transfusion of Nonautologous Red Blood Cells into Peripheral Vein, Percutaneous Approach (ICD-10-PCS; 2023-10-04)
DX: D61.810 Antineoplastic chemotherapy induced pancytopenia (principal); C79.51 Secondary malignant neoplasm of bone; C61 Malignant neoplasm of prostate; D64.81 Anemia due to antineoplastic chemotherapy; E83.51 Hypocalcemia
CPT/HCPCS: 36415; 36430; 71046; 80048; 80053; 82248; 82728; 83540; 83550; 83735; 84153; 85014; 85018; 85025; 85045; 85384; 85610; 85730; 85732; 86850; 86900; 86901; 86920; 99284; P9016

== ENCOUNTER → 2023-10-08 10:17 | Outpatient (REF) | payer MEDICARE, OTHER, SELFPAY | LOC: RAD 10:17 | PROVIDERS: ATTENDING PHYSICIAN Internal Medicine Hematology & Oncology; FAMILY PHYSICIAN Family Medicine | DX: C61 Malignant neoplasm of prostate (principal) | CPT/HCPCS: 71260; Q9967 ==

== ENCOUNTER → 2023-10-21 13:28 | Outpatient (REF) | payer MEDICARE, OTHER, SELFPAY ==
[2023-10-21 14:51] LABS: ALT (SGPT) 32 U/L (0-50); AST (SGOT) 35 U/L (17-59); Albumin 4.3 g/dl (3.5-5.0); Alkaline Phosphatase 206 U/L (38-126); Blood Urea Nitrogen 13 mg/dl (9-20); Calcium 9.1 mg/dl (8.4-10.2); Carbon Dioxide 27 mmol/L (22-30); Chloride 106 mmol/L (98-107); Glucose 137 mg/dl (70-99); Potassium 4.6 mmol/L (3.5-5.1); Sodium 140 mmol/L (135-145); Total Bilirubin 0.7 mg/dl (0.2-1.3); Total Protein 6.5 g/dl (6.3-8.2); eGFR > 60.00
== END ==
LOC: REG 13:28
PROVIDERS: ATTENDING PHYSICIAN Nurse Practitioner Family
DX: C61 Malignant neoplasm of prostate (principal); D64.9 Anemia, unspecified
CPT/HCPCS: 36415; 80053

== ENCOUNTER 2023-10-31 07:08 | Emergency (ER) | payer MEDICARE, OTHER, SELFPAY ==
[2023-10-31] VITALS (16 sets, daily range): BP systolic 144–169; BP diastolic 78–92
[2023-10-31 08:38] LABS: Hematocrit 21.2 % (39.0-52.0); Hemoglobin 7.4 g/dL (13.0-18.0); Mean Corp Hgb Conc. 34.9 g/dL (33.0-37.0); Mean Corpuscular Hgb 28.9 pg (27.0-31.0); Mean Corpuscular Volume 82.8 fL (80.0-94.0); Mean Platelet Volume 9.5 fL (7.4-10.4); Platelet Count 67 10^3/uL (130-400); Red Blood Cell Count 2.56 10^6/uL (4.70-6.10); Red Cell Dist. Width 16.7 % (11.5-14.5); White Blood Cell Count 2.7 10^3/uL (4.8-10.8)
[2023-10-31 08:41] LABS: Troponin I < 0.012 ng/ml
[2023-10-31 08:42] LABS: ALT (SGPT) 34 U/L (0-50); AST (SGOT) 89 U/L (17-59); Alkaline Phosphatase 221 U/L (38-126); Blood Urea Nitrogen 14 mg/dl (9-20); Calcium 7.9 mg/dl (8.4-10.2); Carbon Dioxide 27 mmol/L (22-30); Chloride 101 mmol/L (98-107); Direct Bilirubin 0.3 mg/dl (0.0-0.4); Glucose 129 mg/dl (70-99); Lipase 47 U/L (23-300); Potassium 3.7 mmol/L (3.5-5.1); Sodium 135 mmol/L (135-145); Total Bilirubin 1.1 mg/dl (0.2-1.3); Total Protein 6.1 g/dl (6.3-8.2); eGFR > 60.00
--- NOTE | 2023-10-31 08:50 | ED.GENMED ---
History of Present Illness
General
Chief Complaint: Headache
Source: patient, spouse and family
Exam Limitations: none
Time Seen by Provider: 10/31/23 07:36
Nursing documentation reviewed up to this point in time: agreed with
History of Present Illness
History of Present Illness:
68-year-old male with past medical history of prostate cancer with metastasis to bone, A-fib, presenting to the emergency department today with concerns of a frontal headache off and on for a few days with associated numbness sensation to the left
side of his nose. Denies any specific chest pain shortness breath or fevers.
Review of Systems
Review of Systems
Allergies reviewed?: Yes
All Other Systems: ROS reviewed and negative except as documented in HPI and ROS
Phy Exam
Physical Exam
Physical Exam:
GENERAL: Alert , in no apparent distress
EYE: pupils equal and reactive
NECK: Supple, no significant adenopathy.
ENT: o/p clr, mmm.
CARDIAC: Regular rate and rhythm .
LUNGS: Clear breath sounds bilaterally, no acute respiratory distress, no wheezes/rales/rhonchi
ABDOMEN: Soft, without focal tenderness, no r/g, no cvat
NEUROLOGICAL: Alert and oriented, very specific focal decree sensation just to the left side of the patient's nose. No sensation changes throughout the remainder of the face normal HEENT examination otherwise. Normal extremity strength
bilaterally, no change in vision.
SKIN: Warm and dry, skin intact.
MUSCULOSKELETAL: No edema, well perfused.
PSYCH: Normal and appropriate interaction.
Course
Orders/Labs/Results
Orders:
Orders
10/31/23 07:37
Electrocardiogram (*1) Urgent
Reason for Study: Atrial Fibrillation
EKG- Treatment ONCE
10/31/23 07:59
CT Head W/o Iv Contrast Urgent
Comment:
Reason For Exam: headavhe left nose numbness
10/31/23 08:02
Chest [CR Chest - 2 Views ] Urgent
Comment:
Reason For Exam: port
10/31/23 08:10
CMP [Comprehensive Metabolic Panel] Urgent
Complete Blood Count/With Diff Urgent
LFT [Bbozd-Bzlu-Ukxdwht] Urgent
Lipase Urgent
Troponin I Urgent
10/31/23 08:52
Metoclopramide [Reglan] 10 mg IV NOW STA
10/31/23 10:09
Urinalysis Reflex To Culture Urgent
Date Specimen was Collected: 10/31/23
Time Specimen was Collected: 10:05
Urine Microscopic Reflex Cult Urgent
10/31/23 10:35
Amoxicillin 875 mg/Clav 125 mg [Augmentin 875 mg/125 mg] 1 tablet PO NOW STA
Dexamethasone [Decadron] 10 mg PO NOW STA
10/31/23 11:37
* Blood Bank Products Urgent
Blood Bank Products: *Packed RBC Leuko(PRBC's)
Quantity: 1
Transfuse Today: Yes
Reason: Anemia
10/31/23 11:47
0.9% Sodium Chloride 500 ml [Nss] 500 ml IV BOLUS
Ondansetron Injectable [Zofran] 4 mg IV NOW STA
10/31/23 11:52
Type+Screen Urgent
10/31/23 13:43
Ketorolac [Toradol] 15 mg IV NOW STA
10/31/23 15:51
Dexamethasone Sod Phosphate [Decadron] 5 mg IV NOW STA
10/31/23 16:48
Ketorolac [Toradol] 15 mg .ROUTE .STK-MED ONE
10/31/23 16:57
Dexamethasone Sod Phosphate [Decadron] 4 mg .ROUTE .STK-MED ONE
10/31/23 17:09
Heparin Pf [Heparin Lock Flush] 500 unit IV NOW ONE
10/31/23 17:51
Amoxicillin 875 mg/Clav 125 mg [Augmentin 875 mg/125 mg] 1 tablet PO ONCE ONE
Abnormal Lab Results
10/31/23 10/31/23 10/31/23
08:10 10:09 11:52
WBC 2.7 L 10^3/uL
(4.8-10.8)
RBC 2.56 L 10^6/uL
(4.70-6.10)
Hgb 7.4 L g/dL
(13.0-18.0)
Hct 21.2 L %
(39.0-52.0)
RDW 16.7 H %
(11.5-14.5)
Plt Count 67 L 10^3/uL
(130-400)
Abs Immat Gran (auto) 0.2 H 10^3/uL
(0-0.05)
Absolute Lymphs (auto) 0.3 L 10^3/uL
(1.2-3.4)
Immature Gran % 8.5 H %
(0-0.5)
Lymphocytes % 10.3 L %
(20.5-51.1)
Monocytes % 10.7 H %
(1.7-9.3)
Creatinine 0.3 L mg/dL
(0.7-1.3)
Glucose 129 H mg/dl
(70-99)
Calcium 7.9 L mg/dl
(8.4-10.2)
AST 89 H U/L
(17-59)
Alkaline Phosphatase 221 H U/L
(38-126)
Total Protein 6.1 L g/dl
(6.3-8.2)
Urine Ketones 3+ A
(Negative)
Ur Occult Blood Reflex Trace A
(Negative)
Urine RBC 7-10 A /HPF
(0-2)
Crossmatch IS Only See Detail
10/31/23 08:10
10/31/23 08:10
Vital Signs
Initial and Last Documented VS:
Initial Vital Signs
Temp Pulse Resp BP Pulse Ox
98 F 87 16 153/86 98
10/31/23 07:11 10/31/23 07:11 10/31/23 07:11 10/31/23 07:11 10/31/23 07:11
Last Documented Vital Signs
Temp Pulse Resp BP Pulse Ox
98.4 F 79 20 152/87 96
10/31/23 16:52 10/31/23 17:00 10/31/23 17:00 10/31/23 17:00 10/31/23 17:00
MDM/Problems Addressed
MDM/Problems Addressed:
68-year-old male presenting to the emergency department today with concerns of a numbness sensation to the left side of his nose and headache mainly to have this facial pressure. Has had nasal congestion. Here the area of numbness is a very small
localized area making stroke very unlikely CT scan was obtained that showed significant inflammation of the sinuses potentially explain the patient's symptoms. He was started on antibiotics and also given steroids to reduce inflammation.
Hemoglobin is found to be 7.4 which was below patient's previous baseline. This was deemed to not be from blood loss or iron insufficiency but from likely decreased production from bone disorder. This was discussed with hematology he was given a
unit of blood but otherwise will follow-up closely for ongoing treatment and monitoring of this.
*Critical Care Note
Total Time (30-74mins, 75-104mins- exclusive of procedures): Not Applicable
ED Attending Note
-
Portions of this chart may have been created with voice recognition software.� Occasional wrong word or��sound alike� substitutions may have occurred due to the inherent limitations of voice recognition software.
Discharge Plan
Departure
Patient Disposition: Home (Routine Discharge)
Patient with high blood pressure during this ER visit?: No
Condition: Good
Covid-19: Not Applicable
Discharge Problem:
Acute sinusitis, Anemia
Instructions: Sinusitis, Adult ED
Prescriptions:
New
amoxicillin-pot clavulanate 875-125 mg tablet
1 tab PO BID 10 Days Qty: 20 0RF
prednisone 20 mg tablet
40 mg PO DAILY 3 Days Qty: 6 0RF
No Action
prednisone 5 mg Tablet
5 mg PO DAILY
ibuprofen [Advil] 200 mg Tablet
400 mg PO DAILYPRN PRN (Reason: headaches)
polyethylene glycol 3350 [Miralax] 17 gram Powder In Packet
17 g PO DAILYPRN PRN (Reason: constipation)
oxycodone-acetaminophen 5-325 mg Tablet
1 tab PO Q6HPRN PRN (Reason: moderate pain)
morphine 15 mg Tablet Extended Release
15 mg PO [id number] PRN (Reason: headache)
psyllium seed (sugar) Powder
1 tsp PO DAILYPRN PRN (Reason: constipation)
calcium carbonate-vitamin D3 [Calcium 600 + D(3)] 600 mg-10 mcg (400 unit) Tablet
1 tab PO BID
Referrals:
Mckay Wilhelm MD [Family Provider] -
Activity Restrictions/Additional Instructions:
You came to the emergency department today with concerns of headache you are found to have sinusitis please take the prescribed medications. You also were found to be anemic you are given a unit of blood and you will need to follow-up very closely
with your oncologist for further management of this.
Interventions
Interventions:
*Risk Screen - Suicide Last Done: 10/31/23 07:11
*General Assessment Last Done: 10/31/23 07:11
*Neglect/Abuse Screening Last Done: 10/31/23 07:11
ED- Fall Risk Assessment Last Done: 10/31/23 17:15
*ED COVID-19 Vaccine History Last Done: 10/31/23 17:15
*Nursing Disposition Last Done: 10/31/23 17:15
ED- Neurological Assessment Last Done: 10/31/23 08:10
Discharge Date and Time
Discharge Date/Time: 10/31/23 17:15
Print Language: ESTONIAN
[2023-10-31] MEDS: REGLAN 10 MG IV (09:05)
[2023-10-31] MEDS: DECADRON 10 MG PO (11:11)
[2023-10-31] MEDS: AUGMENTIN 875 MG/125 MG 1 TABLET PO ×2 (11:11→17:00)
[2023-10-31 11:36] LABS: Urine Albumin Negative (Neg - Trace); Urine Bilirubin Negative (Negative); Urine Character Clear (Clear); Urine Color Yellow; Urine Glucose Negative (Negative); Urine Ketone 3+ (Negative); Urine Leukocyte Negative (Negative); Urine Nitrite Negative (Negative); Urine Occult Blood Trace (Negative); Urine Specific Gravity 1.015 (<1.030); Urine Urobilinogen Negative (Neg - 1+)
[2023-10-31 11:37] LABS: % Basophils 0.4 % (0-2); % Immature Granulocytes 8.5 % (0-0.5); % Lymphocytes 10.3 % (20.5-51.1); % Monocytes 10.7 % (1.7-9.3); % Neutrophils 70.1 % (42.2-75.2); Absolute Immature Granulocytes 0.2 10^3/uL (0-0.05); Absolute Lymphocytes 0.3 10^3/uL (1.2-3.4); Absolute Monocytes 0.3 10^3/uL (0.1-0.6); Absolute Neutrophils 1.9 10^3/uL (1.4-6.5); Nucleated Red Blood Cells % 0.7 % (-)
[2023-10-31] MEDS: ZOFRAN 4 MG IV (11:57)
[2023-10-31] MEDS: NSS 500 IV (11:57)
[2023-10-31 12:45] LABS: Urine Mucus Many
[2023-10-31 12:46] LABS: Urine Amorphous Seen
[2023-10-31 12:47] LABS: Urine Hyaline Cast 0-2 /LPF (0-2); Urine White Cell 0-2 /HPF (0-5)
[2023-10-31] MEDS: TORADOL 15 MG IV (16:59)
[2023-10-31] MEDS: DECADRON 5 MG IV (17:00)
--- NOTE | 2023-10-31 17:15 | VATNOTE ---
right subq port deaccessed per protocol. Brisk blood return noted prior to.
== END 2023-10-31 17:15 | disposition home or self-care (01) ==
LOC: EMR 07:08
PROVIDERS: Physician Assistant; EMERGENCY PHYSICIAN Emergency Medicine; FAMILY PHYSICIAN Family Medicine
DX: R51.9 Headache, unspecified (principal); R11.2 Nausea with vomiting, unspecified; R20.0 Anesthesia of skin; J01.90 Acute sinusitis, unspecified; D64.9 Anemia, unspecified; I48.91 Unspecified atrial fibrillation; Z85.46 Personal history of malignant neoplasm of prostate; C79.51 Secondary malignant neoplasm of bone
CPT/HCPCS: 99285; 36430; 96374; 96375 ×4; 96361; 70450; 71046; 80053; 80076; 81003; 81015; 83690; 84484; 85025; 86850; 86900; 86901; 86920; 93005; P9016

== ENCOUNTER → 2023-11-08 07:11 | Outpatient (REF) | payer MEDICARE, OTHER, SELFPAY | LOC: MRI 07:11 | PROVIDERS: ATTENDING PHYSICIAN Nurse Practitioner Adult Health; FAMILY PHYSICIAN Family Medicine | DX: C61 Malignant neoplasm of prostate (principal); D64.9 Anemia, unspecified; R51.9 Headache, unspecified | CPT/HCPCS: 70553; A9575 ==

== ENCOUNTER 2023-11-13 11:33 | Outpatient (RCR) | payer MEDICARE, OTHER, SELFPAY ==
[2023-11-12 11:53] LABS: ALT (SGPT) 27 U/L (0-50); AST (SGOT) 49 U/L (17-59); Alkaline Phosphatase 201 U/L (38-126); Blood Urea Nitrogen 11 mg/dl (9-20); Calcium 8.2 mg/dl (8.4-10.2); Carbon Dioxide 27 mmol/L (22-30); Chloride 102 mmol/L (98-107); Glucose 141 mg/dl (70-99); Potassium 4.1 mmol/L (3.5-5.1); Sodium 136 mmol/L (135-145); Total Bilirubin 0.8 mg/dl (0.2-1.3); Total Protein 6.2 g/dl (6.3-8.2); eGFR > 60.00
[2023-11-13 11:40] VITALS: BP 142/79
[2023-11-13 12:02] VITALS: BP 142/79
[2023-11-13 12:20] VITALS: BP 129/84
[2023-11-13 14:26] VITALS: BP 137/76
== END 2023-12-13 23:59 | disposition home or self-care (01) ==
LOC: OID 11:33
PROVIDERS: Nurse Practitioner Family; ATTENDING PHYSICIAN Internal Medicine Hematology & Oncology; FAMILY PHYSICIAN Family Medicine
DX: C61 Malignant neoplasm of prostate (principal)
CPT/HCPCS: 36415; 36430; 80053; 86850; 86900; 86901; 86920; P9016